=== PATIENT | female | born 1955 | race Caucasian/White ===

== ENCOUNTER → 2018-09-20 13:18 | Outpatient (CLI) | payer OTHER, SELFPAY ==
--- NOTE | 2018-09-20 13:27 | NVE_ITS ---
Venous Exam Indications: 729.5 Pain in limb. IMPRESSIONS 1. No evidence of deep or superficial vein thrombosis involving the right lower extremity 2. 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 Complete lower extremity venous duplex evaluation. Doppler flow study including spectral analysis, color and shea scale imaging. Location: Vascular laboratory. Patient status: Outpatient. Tables: Venous flow and imaging: + +-------+ + Location Overall Flow properties + +-------+ + Right common femoral Patent Normal phasicity; spontaneous; normal augmentation; compressible + +-------+ + Right saphenofemoral junction Patent Compressible + +-------+ + Right profunda femoral Patent Compressible + +-------+ + Right femoral Patent Normal phasicity; spontaneous; normal augmentation; compressible + +-------+ + Right greater saphenous Patent Normal phasicity; spontaneous; normal augmentation; compressible + +-------+ + Right popliteal Patent Normal phasicity; spontaneous; normal augmentation; compressible + +-------+ + Right posterior tibial Patent Compressible + +-------+ + Right peroneal Patent Compressible + +-------+ + Right gastrocnemius Patent Compressible + +-------+ + Right soleal Patent Compressible + +-------+ + (Report amended ) Electronically signed by: Dylan Hernández [id number]
== END ==
PROVIDERS: PCP Family Medicine; Visit Provider Family Medicine
DX: M79.661 Pain in right lower leg (principal)
CPT/HCPCS: 93971

== ENCOUNTER → 2021-03-11 15:44 | Outpatient (CLI) | payer OTHER, SELFPAY | PROVIDERS: PCP Nurse Practitioner; Visit Provider Nurse Practitioner | DX: Z20.822 Contact with and (suspected) exposure to COVID-19 (principal); U07.1 COVID-19 | CPT/HCPCS: C9803; U0003; U0005 ==

== ENCOUNTER → 2021-06-24 14:38 | Outpatient (CLI) | payer OTHER, SELFPAY | PROVIDERS: PCP Family Medicine; Visit Provider Nurse Practitioner | DX: U07.1 COVID-19 (principal) | CPT/HCPCS: C9803; U0003; U0005 ==

== ENCOUNTER → 2022-05-18 09:25 | Outpatient (CLI) | payer OTHER, SELFPAY ==
[2022-05-18 20:32] LABS: Alanine Aminotransferase 27 U/L (12-78); Albumin Level 4.2 g/dl (3.5-5.0); Albumin/Globulin Ratio 1.8 (1.1-1.8); Alkaline Phosphatase 92 U/L (38-126); Anion Gap 14.3 mEq/L (5-15); Aspartate Amino Transferase 35 U/L (14-36); Bilirubin,Total 0.5 mg/dl (0.2-1.3); Blood Urea Nitrogen 13 mg/dl (7-17); Calcium 9.6 mg/dl (8.4-10.2); Carbon Dioxide 24 mmol/L (22.0-30.0); Chloride 104 mmol/L (98-107); Chol/HDL Ratio 2.9 (1-3.5); Cholesterol 141 mg/dl (140-200); Estimated Glomerular Filt Rate 72 ml/min (>60); GFR (African American) 87 ML/MIN (>60); Globulin 2.3 g/dL (1.3-3.2); Glucose 144 mg/dl (74-100); HDL Cholesterol 48 mg/dl (40-60); Potassium 4.3 mmoL/L (3.5-5.1); Sodium 138 mmol/L (136-145); Total Protein,Serum 6.5 g/dl (6.3-8.2); Triglycerides 158 mg/dl (30-150); VLDL Cholesterol 32 mg/dL (0-40)
[2022-05-18 20:43] LABS: Direct LDL Cholesterol 65.45 mg/dL (100-129)
[2022-05-18 21:22] LABS: Vitamin B12 511 pg/mL (239-931)
== END ==
PROVIDERS: PCP Nurse Practitioner; Visit Provider Nurse Practitioner
DX: I10 Essential (primary) hypertension (principal); E11.9 Type 2 diabetes mellitus without complications; E78.5 Hyperlipidemia, unspecified; J30.9 Allergic rhinitis, unspecified; Z79.84 Long term (current) use of oral hypoglycemic drugs
CPT/HCPCS: 80053; 80061; 82607; 84443

== ENCOUNTER → 2022-06-24 14:21 | Outpatient (CLI) | payer OTHER, SELFPAY ==
--- NOTE | 2022-06-24 14:35 | US_ITS ---
FINAL REPORT TECHNIQUE: Sonographic images of the thyroid gland were obtained in the longitudinal and transverse planes. CLINICAL HISTORY: thyroid nodularity FINDINGS: The right lobe measures 1.1 x 3.4 x 1.3 cm. There is a tiny colloid cyst. The right lobe is otherwise homogeneous. The left lobe measures 1.3 x 3.7 x 1.2 cm. The left lobe is homogeneous. There are no cystic or solid nodules. The isthmus measures 3 mm. This is normal. IMPRESSION: Tiny colloid cyst on the right, otherwise unremarkable. Reviewed, Interpreted and Dictated by Nicky Parish MD Transcribed by Elaine Stahl Authenticated and [facility]
== END ==
PROVIDERS: PCP Nurse Practitioner; Visit Provider Nurse Practitioner
DX: D44.0 Neoplasm of uncertain behavior of thyroid gland (principal)
CPT/HCPCS: 76536

== ENCOUNTER → 2022-12-02 09:21 | Outpatient (CLI) | payer MEDICARE, SELFPAY ==
[2022-12-02 18:37] LABS: Creatinine,Urine Random 83 mg/dL (Not Estab.)
[2022-12-02 18:38] LABS: Basophils % 0.2 % (0.1-2.0); Eosinophils # 0.1 K/mm3 (0.0-0.4); Eosinophils % 2.7 % (0.1-12.0); Hematocrit 45.1 % (37.0-47.0); Lymphocytes # 1.6 K/mm3 (0.7-4.5); Lymphocytes % 36.4 % (10-50); Mean Corpuscular Hemoglobin 31.5 pg (27.0-31.2); Mean Corpuscular Volume 101.7 fl (81-99); Mean Platelet Volume 10.1 fl (7.4-10.4); Monocytes # 0.4 K/mm3 (0.1-1.0); Monocytes % 8.8 % (1.7-9.3); Neutrophils # 2.2 K/mm3 (1.8-7.8); Neutrophils % 51.9 % (37.0-80.0); Platelet Count 204 K/mm3 (142-424); Red Blood Count 4.43 M/mm3 (4.20-5.40); Red Cell Distribution Width 12.6 % (11.5-17.5); White Blood Count 4.3 K/mm3 (4.8-10.8)
[2022-12-02 18:41] LABS: Microalbumin/Creatinine Ratio 8.5
[2022-12-02 18:43] LABS: Alanine Aminotransferase 30 U/L (12-78); Albumin Level 4.2 g/dl (3.5-5.0); Albumin/Globulin Ratio 1.8 (1.1-1.8); Alkaline Phosphatase 66 U/L (38-126); Anion Gap 17.2 mEq/L (5-15); Aspartate Amino Transferase 40 U/L (14-36); Bilirubin,Total 0.3 mg/dl (0.2-1.3); Blood Urea Nitrogen 10 mg/dl (7-17); Calcium 8.9 mg/dl (8.4-10.2); Carbon Dioxide 26 mmol/L (22.0-30.0); Chloride 102 mmol/L (98-107); Chol/HDL Ratio 2.5 (1-3.5); Cholesterol 133 mg/dl (140-200); Estimated Glomerular Filt Rate 84 ml/min (>60); GFR (African American) 102 ML/MIN (>60); Globulin 2.4 g/dL (1.3-3.2); Glucose 142 mg/dl (74-100); HDL Cholesterol 53 mg/dl (40-60); Potassium 4.2 mmoL/L (3.5-5.1); Sodium 141 mmol/L (136-145); Total Protein,Serum 6.6 g/dl (6.3-8.2); Triglycerides 196 mg/dl (30-150); VLDL Cholesterol 39 mg/dL (0-40)
[2022-12-02 18:57] LABS: Direct LDL Cholesterol 56.77 mg/dL (100-129)
== END ==
PROVIDERS: PCP Nurse Practitioner; Visit Provider Nurse Practitioner
DX: E11.9 Type 2 diabetes mellitus without complications (principal); E78.5 Hyperlipidemia, unspecified; I10 Essential (primary) hypertension; J30.9 Allergic rhinitis, unspecified; Z79.84 Long term (current) use of oral hypoglycemic drugs
CPT/HCPCS: 80053; 80061; 82043; 82570; 85025

== ENCOUNTER 2023-06-24 19:34 | Outpatient (CLI) | payer MEDICARE, SELFPAY ==
[2023-06-24 19:15] LABS: Alanine Aminotransferase 24 U/L (12-78); Albumin Level 3.9 g/dl (3.5-5.0); Albumin/Globulin Ratio 1.7 (1.1-1.8); Alkaline Phosphatase 68 U/L (38-126); Anion Gap 11.5 mEq/L (5-15); Aspartate Amino Transferase 30 U/L (14-36); Bilirubin,Total 0.4 mg/dl (0.2-1.3); Blood Urea Nitrogen 14 mg/dl (7-17); Calcium 8.9 mg/dl (8.4-10.2); Carbon Dioxide 26 mmol/L (22.0-30.0); Chloride 102 mmol/L (98-107); Chol/HDL Ratio 3.8 (1-3.5); Cholesterol 163 mg/dl (140-200); Estimated Glomerular Filt Rate 72 ml/min (>60); GFR (African American) 87 ML/MIN (>60); Globulin 2.3 g/dL (1.3-3.2); Glucose 136 mg/dl (74-100); HDL Cholesterol 43 mg/dl (40-60); Potassium 4.5 mmoL/L (3.5-5.1); Sodium 135 mmol/L (136-145); Total Protein,Serum 6.2 g/dl (6.3-8.2); Triglycerides 154 mg/dl (30-150); VLDL Cholesterol 31 mg/dL (0-40)
[2023-06-24 19:26] LABS: Direct LDL Cholesterol 93.18 mg/dL (100-129)
[2023-06-24 19:56] LABS: Creatinine,Urine Random 58 mg/dL (Not Estab.)
[2023-06-24 20:07] LABS: Microalbumin < 6.000 mg/L (0-16.7)
[2023-06-24 20:20] LABS: Thyroid Stimulating Hormone 0.72 uIU/mL (0.465-4.68)
[2023-06-24 20:40] LABS: Vitamin B12 616 pg/mL (239-931)
== END 2023-06-24 23:59 ==
LOC: LAB.DROPOF 19:34
PROVIDERS: PCP Nurse Practitioner; Visit Provider Nurse Practitioner
DX: E11.9 Type 2 diabetes mellitus without complications (principal); E78.5 Hyperlipidemia, unspecified; I10 Essential (primary) hypertension; J30.9 Allergic rhinitis, unspecified; Z79.84 Long term (current) use of oral hypoglycemic drugs
CPT/HCPCS: 80053; 80061; 82043; 82570; 82607; 84443

== ENCOUNTER 2023-08-19 16:39 | Emergency (ER) | payer MEDICARE, SELFPAY ==
[2023-08-19 16:40] VITALS: BP 132/73; PULSE 110; RESP 18; TEMP 36.7; O2SAT 99; BMI 30.6
--- NOTE | 2023-08-19 17:09 | XR_ITS ---
PROCEDURE INFORMATION: Exam: XR Right Humerus Exam date and time: 08/19/2023 5:25 PM Age: 67 years old Clinical indication: Injury or trauma; Fall; Blunt trauma (contusions or hematomas); Arm, upper; Right; Additional info: Fall, injury TECHNIQUE: Imaging protocol: Radiologic exam of the right humerus. Views: 2 or more views. COMPARISON: No relevant prior studies available. FINDINGS: Bones/joints: Minimally displaced fracture of the proximal radial metaphysis with avulsion of the greater tuberosity of the humerus which measures 4.1 cm in greatest dimension. Soft tissues: Moderate soft tissue swelling. IMPRESSION: Minimally displaced fracture of the proximal radial metaphysis with avulsion of the greater tuberosity of the humerus which measures 4.1 cm in greatest dimension.
--- NOTE | 2023-08-19 17:10 | ED_ITS ---
Discharge Plan Disposition Patient Disposition: Home, Self-Care Prescriptions Prescriptions: New hydrocodone-acetaminophen 5-325 mg tablet 1 tab PO Q6H PRN (Reason: pain) 3 Days Qty: 12 0RF No Action aspirin 81 mg tablet,chewable 81 mg PO DAILY cyanocobalamin (vitamin B-12) 1,000 mcg tablet 1,000 mcg PO DAILY multivitamin Tablet 1 tab PO DAILY cefdinir 300 mg capsule 300 mg PO BID Qty: 20 0RF glimepiride 2 mg tablet 2 mg PO DAILY Qty: 90 1RF hydrochlorothiazide 12.5 mg tablet 12.5 mg PO DAILY Qty: 90 1RF lisinopril 5 mg tablet 5 mg PO DAILY Qty: 90 1RF metformin 1,000 mg tablet 1,000 mg PO BID Qty: 180 1RF simvastatin 40 mg tablet 40 mg PO HS Qty: 90 1RF Referrals Follow up/Referrals: Lynne Jameson APRN [Primary Care Provider] - See instructions Nicanor Giron DO [Staff Physician] - See instructions Activity Restrictions/Add. Instructions Additional Instructions/Restrictions: You have a proximal right humerus fracture in the neck and head of the humerus. Please wear your sling and follow-up closely with Dr. Giron for further evaluation and management. Clinical Impressions Clinical Impression: Closed fracture of neck of right humerus, Fracture of head of right humerus Discharge ED Provider: Joanna Vigil General Adult HPI General Chief complaint: Extremity Injury, Upper Stated complaint: [id number]/14@[id number] RT arm inj Time Seen by Provider: 08/19/23 17:07 History of Present Illness HPI narrative: Patient is a 67-year-old female presents today with right proximal humerus pain after walking a dog that pulled her arm and she fell with a direct blow to that area. She claims that she has pain in this area and nowhere else. Has no motor or sensory dysfunction. States when her arm is internally rotated and adducted that she is not having significant pain only when she moves. Related Data Home Medications Medication Instructions Recorded Confirmed aspirin 81 mg chewable tablet 81 mg PO DAILY 05/18/22 06/24/23 cyanocobalamin (vitamin B-12) 1,000 mcg PO DAILY 05/18/22 06/24/23 1,000 mcg tablet multivitamin 1 tab PO DAILY 12/12/22 01/18/24 Previous Rx's Medication Instructions Recorded cefdinir 300 mg capsule 300 mg PO BID #20 caps 06/24/23 glimepiride 2 mg tablet 2 mg PO DAILY #90 tabs 06/24/23 hydrochlorothiazide 12.5 mg tablet 12.5 mg PO DAILY #90 tabs 06/24/23 lisinopril 5 mg tablet 5 mg PO DAILY #90 tabs 06/24/23 metformin 1,000 mg tablet 1,000 mg PO BID #180 tabs 06/24/23 simvastatin 40 mg tablet 40 mg PO HS #90 tabs 06/24/23 hydrocodone 5 mg-acetaminophen 325 1 tab PO Q6H PRN pain 3 days #12 08/19/23 mg tablet tabs Allergies Allergy/AdvReac Type Severity Reaction Status Date / Time No Known Allergies Allergy Verified 06/24/23 08:48 [facility] Disclaimer: The information contained in this section may have been updated after the patient was seen, as this information can be updated by other users. 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 Type 2 diabetes mellitus without complications Surgical History History of delivery Social History Smoking Status: Never smoker alcohol intake: never substance use type: denies use current occupational status: other Travel in the last 8 weeks: None ROS Obtained: Yes All systems reviewed & no additional complaints except as documented Physical Exam General General appearance: alert and in no apparent distress Respiratory Respiratory exam: Present normal lung sounds bilaterally Cardiovascular Cardiovascular exam: Present regular rate and normal rhythm Extremities Exam Extremities exam: Present other (Patient has tenderness in the proximal humerus on the right arm normal median axillary ulnar radial motor and sensory function normal nerve exam as well as vascular exam) Neurological Exam Neurological exam: Present alert and oriented X3 Medical Decision Making Christian Inquiry Pt receiving controlled substance: No Vital Signs: 08/19/23 16:40 Temperature 98.1 F Temperature Source Oral Pulse Rate [Left] 110 H Respiratory Rate 18 Blood Pressure [Right Arm] 132/73 Blood Pressure Mean [Right Arm] 92 Blood Pressure Source [Right Arm] Automatic Cuff 02 Sat by Pulse Oximetry 99 Oxygen Delivery Method Room Air Orders (Tests/Meds): ED MEDICATIONS Discontinued Medications Generic Name Dose Route Start Last Admin Trade Name Dexter PRN Reason Stop Dose Admin Acetaminophen 1,000 mg 08/19/23 17:09 Acetaminophen 500mg Tab PO 08/19/23 17:10 ONCE ONE ORDERS Category Date Time Status Humerus XR right [XR humerus RT] Stat Exams 08/19/23 17:09 Taken Medical Decision Narrative: 67-year-old female with proximal humeral pain after a fall and pulling injury. Differential includes musculoskeletal strain fracture dislocation etc. Will get a humerus x-ray and reassess. Tylenol has been administered as well. X-ray performed which showed humeral neck and humeral head fracture definitive fracture care was provided given a sling and swath. Patient will follow-up outpatient with orthopedic surgery prescription of Arnold was sent to her pharmacy she was discharged in stable condition. Critical Care Critical Care Time Critical Care Time: No
[2023-08-19] MEDS: ACETAMINOPHEN 500MG TAB 1000 MG PO (17:43)
[2023-08-19 17:55] VITALS: BP 134/70; PULSE 90; RESP 16; TEMP 36.7; O2SAT 98
--- NOTE | 2023-08-23 22:45 | PC.NURSE ---
Chart accessed for ortho paperwork
== END 2023-08-19 18:01 | disposition home or self-care (01) ==
PROVIDERS: Emergency Provider Student in an Organized Health Care Education/Training Program; PCP Nurse Practitioner
DX: S42.254A Nondisplaced fracture of greater tuberosity of right humerus, initial encounter for closed fracture (principal); S42.211A Unspecified displaced fracture of surgical neck of right humerus, initial encounter for closed fracture; W18.30XA Fall on same level, unspecified, initial encounter; Y93.K1 Activity, walking an animal; I10 Essential (primary) hypertension; E78.5 Hyperlipidemia, unspecified; E11.9 Type 2 diabetes mellitus without complications
CPT/HCPCS: 73060; 99283

== ENCOUNTER 2023-08-25 13:40 | Outpatient (CLI) | payer MEDICARE, SELFPAY ==
--- NOTE | 2023-08-25 13:51 | CT_ITS ---
FINAL REPORT TECHNIQUE: Axial imaging of the right shoulder was obtained without contrast. Reformatted images were also obtained and reviewed. Low-dose technique was utilized. CLINICAL HISTORY: Rt Humerus Fx FINDINGS: There is a comminuted fracture of the humeral head and surgical neck with mild impaction of the fracture fragments. A small calcification is seen posterior and inferior to the glenohumeral joint which may represent a bony fragment. There is a moderate-sized joint effusion. Mild degenerative changes are seen of the acromioclavicular joint. IMPRESSION: Comminuted fracture of the humeral head and surgical neck with mild impaction of the fracture fragments. Small calcification at the posterior inferior aspect of the glenohumeral joint likely represents a bony fragment. Reviewed, Interpreted and Dictated by Carlos Centeno III, MD Transcribed by Hayley Arauz Authenticated and [facility]
== END 2023-08-25 23:59 ==
PROVIDERS: PCP Nurse Practitioner; Visit Provider Orthopaedic Surgery
DX: S42.211A Unspecified displaced fracture of surgical neck of right humerus, initial encounter for closed fracture (principal)
CPT/HCPCS: 73200

== ENCOUNTER 2023-08-31 15:32 | Outpatient (POV) | payer MEDICARE, SELFPAY | END 2023-08-31 23:59 | disposition home or self-care (01) | LOC: SC 15:32 | PROVIDERS: PCP Nurse Practitioner; Visit Provider Dermatology | DX: Z00.00 Encounter for general adult medical examination without abnormal findings (principal) ==

== ENCOUNTER 2023-10-12 10:20 | Outpatient (CLI) | payer MEDICARE, SELFPAY ==
--- NOTE | 2023-10-12 10:23 | XR_ITS ---
FINAL REPORT CLINICAL HISTORY: right shoulder fx COMPARISON: CT right shoulder dated 08/25/2023 FINDINGS: RIGHT SHOULDER: 2 views of the right shoulder were obtained. There is a comminuted fracture of the humeral head and neck, with an appearance similar to that of the CT from August. There has been some mild healing at the fracture sites. The joint spaces are intact. There is no soft tissue abnormality. IMPRESSION: Comminuted fracture of the humeral head and neck, with send appearance is similar to that seen on the prior CT examination of August 2023. Some mild interval healing has taken place. Reviewed, Interpreted and Dictated by Carlos Centeno III, MD Transcribed by Daisy Aranda Authenticated and [facility]
== END 2023-10-12 23:59 | disposition home or self-care (01) ==
LOC: RAD 10:21
PROVIDERS: PCP Nurse Practitioner; Visit Provider Orthopaedic Surgery
DX: M79.601 Pain in right arm (principal); S42.251A Displaced fracture of greater tuberosity of right humerus, initial encounter for closed fracture
CPT/HCPCS: 73030

== ENCOUNTER 2023-10-26 16:08 | Outpatient (POV) | payer MEDICARE, SELFPAY | END 2023-10-26 23:59 | disposition home or self-care (01) | LOC: SC 16:08 | PROVIDERS: PCP Nurse Practitioner; Visit Provider Dermatology | DX: Z00.00 Encounter for general adult medical examination without abnormal findings (principal) ==

== ENCOUNTER 2023-11-09 12:58 | Outpatient (CLI) | payer MEDICARE, SELFPAY ==
--- NOTE | 2023-11-09 13:04 | XR_ITS ---
FINAL REPORT CLINICAL HISTORY: Rt SHoulder pain FINDINGS: Right shoulder Five views were obtained. There is mild AC joint degenerative change. There is a mild impaction fracture of the surgical neck of the humerus of uncertain age, may be subacute. IMPRESSION: Fracture as above. Reviewed, Interpreted and Dictated by Carlos Centeno III, MD Transcribed by Elaine Stahl Authenticated and [facility]
== END 2023-11-09 23:59 | disposition home or self-care (01) ==
LOC: RAD 12:59
PROVIDERS: PCP Nurse Practitioner; Visit Provider Physician Assistant
DX: M25.511 Pain in right shoulder; S42.291A Other displaced fracture of upper end of right humerus, initial encounter for closed fracture
CPT/HCPCS: 73030

== ENCOUNTER 2024-02-29 11:02 | Outpatient (CLI) | payer MEDICARE, SELFPAY ==
[2024-02-29 18:34] LABS: Basophils % 0.4 % (0.1-2.0); Eosinophils # 0.1 K/mm3 (0.0-0.4); Eosinophils % 2.5 % (0.1-12.0); Hematocrit 42.3 % (37.0-47.0); Hemoglobin 13.7 g/dL (12.2-16.2); Lymphocytes # 1.3 K/mm3 (0.7-4.5); Lymphocytes % 30.8 % (10-50); Mean Corpuscular HGB Conc 32.3 g/dL (31.8-35.4); Mean Corpuscular Hemoglobin 32.8 pg (27.0-31.2); Mean Corpuscular Volume 101.3 fl (81-99); Mean Platelet Volume 8.8 fl (7.4-10.4); Monocytes # 0.3 K/mm3 (0.1-1.0); Monocytes % 6.8 % (1.7-9.3); Neutrophils # 2.6 K/mm3 (1.8-7.8); Neutrophils % 59.4 % (37.0-80.0); Platelet Count 216 K/mm3 (142-424); Red Blood Count 4.18 M/mm3 (4.20-5.40); Red Cell Distribution Width 12.8 % (11.5-17.5); White Blood Count 4.3 K/mm3 (4.8-10.8)
[2024-02-29 19:02] LABS: Alanine Aminotransferase 24 U/L (12-78); Albumin Level 4.1 g/dl (3.5-5.0); Albumin/Globulin Ratio 1.8 (1.1-1.8); Alkaline Phosphatase 65 U/L (38-126); Aspartate Amino Transferase 31 U/L (14-36); Bilirubin,Total 0.5 mg/dl (0.2-1.3); Blood Urea Nitrogen 17 mg/dl (7-17); Calcium 9.1 mg/dl (8.4-10.2); Carbon Dioxide 27 mmol/L (22.0-30.0); Chloride 104 mmol/L (98-107); Chol/HDL Ratio 2.9 (1-3.5); Cholesterol 150 mg/dl (140-200); Estimated Glomerular Filt Rate 72 ml/min (>60); GFR (African American) 87 ML/MIN (>60); Globulin 2.3 g/dL (1.3-3.2); Glucose 137 mg/dl (74-100); HDL Cholesterol 51 mg/dl (40-60); Sodium 135 mmol/L (136-145); Total Protein,Serum 6.4 g/dl (6.3-8.2); Triglycerides 178 mg/dl (30-150); VLDL Cholesterol 36 mg/dL (0-40)
[2024-02-29 19:14] LABS: Hemoglobin A1C 6.7 % (4.0-6.0)
[2024-02-29 20:22] LABS: Direct LDL Cholesterol 66.64 mg/dL (100-129)
== END 2024-02-29 23:59 | disposition home or self-care (01) ==
LOC: LAB.DROPOF 03-01 11:02
PROVIDERS: PCP Nurse Practitioner; Visit Provider Nurse Practitioner
DX: E11.9 Type 2 diabetes mellitus without complications (principal); I10 Essential (primary) hypertension; E78.5 Hyperlipidemia, unspecified
CPT/HCPCS: 80053; 80061; 83036; 85025

== ENCOUNTER 2024-11-01 11:00 | Outpatient (CLI) | payer MEDICARE, SELFPAY ==
[2024-11-01 19:10] LABS: Creatinine,Urine Random 75 mg/dL (Not Estab.); Microalbumin < 6.000 mg/L (0-16.7)
[2024-11-01 19:17] LABS: Basophils % 0.5 % (0.1-2.0); Eosinophils # 0.1 Kmm3 (0.0-0.4); Eosinophils % 1.9 % (0.1-12.0); Hematocrit 39.7 % (37.0-47.0); Hemoglobin 13.5 g/dL (12.2-16.2); Immature Granulocytes # 0.01 10^3uL; Immature Granulocytes % 0.2 %; Lymphocytes # 1.5 K/mm3 (0.7-4.5); Lymphocytes % 34.7 % (10-50); Mean Corpuscular Hemoglobin 32.3 pg (27.0-31.2); Mean Platelet Volume 10.5 fl (7.4-10.4); Monocytes # 0.5 K/mm3 (0.1-1.0); Monocytes % 11.2 % (1.7-9.3); Neutrophils # 2.2 K/mm3 (1.8-7.8); Neutrophils % 51.5 % (37.0-80.0); Nucleated Red Blood Cells # 0 10^3/uL; Nucleated Red Blood Cells % 0 %; Platelet Count 204 K/mm3 (142-424); Red Blood Count 4.18 M/mm3 (4.20-5.40); Red Cell Distribution Width-SD 41.7 fL; White Blood Count 4.2 K/mm3 (4.8-10.8)
[2024-11-01 19:42] LABS: Alanine Aminotransferase 23 U/L (12-78); Albumin Level 4.2 g/dl (3.5-5.0); Albumin/Globulin Ratio 1.8 (1.1-1.8); Alkaline Phosphatase 64 U/L (38-126); Aspartate Amino Transferase 28 U/L (14-36); Bilirubin,Total 0.5 mg/dl (0.2-1.3); Blood Urea Nitrogen 12 mg/dl (7-17); Calcium 9.2 mg/dl (8.4-10.2); Carbon Dioxide 27 mmol/L (22.0-30.0); Chol/HDL Ratio 3.8 (1-3.5); Cholesterol 180 mg/dl (140-200); Estimated Glomerular Filt Rate 83 ml/min (>60); GFR (African American) 101 ML/MIN (>60); Globulin 2.3 g/dL (1.3-3.2); Glucose 120 mg/dl (74-100); HDL Cholesterol 47 mg/dl (40-60); Potassium 4.6 mmoL/L (3.5-5.1); Sodium 138 mmol/L (136-145); Total Protein,Serum 6.5 g/dl (6.3-8.2); Triglycerides 255 mg/dl (30-150); VLDL Cholesterol 51 mg/dL (0-40)
[2024-11-01 19:59] LABS: Anion Gap 12.6 mEq/L (5-15); Chloride 103 mmol/L (98-107)
[2024-11-01 20:11] LABS: Hemoglobin A1C 6.8 % (4.0-6.0); Thyroid Stimulating Hormone 0.73 uIU/mL (0.465-4.68)
[2024-11-01 20:22] LABS: HIV Combo NEGATIVE (Negative)
[2024-11-01 21:36] LABS: Hepatitis C Ab Qual. W/ RFX NEGATIVE (Negative)
[2024-11-01 21:53] LABS: Vitamin B12 725 pg/mL (239-931)
== END 2024-11-01 23:59 | disposition home or self-care (01) ==
LOC: LAB.DROPOF 11-02 13:01
PROVIDERS: PCP Nurse Practitioner; Visit Provider Nurse Practitioner
DX: E78.5 Hyperlipidemia, unspecified (principal); E11.9 Type 2 diabetes mellitus without complications; I10 Essential (primary) hypertension; Z11.59 Encounter for screening for other viral diseases; Z11.4 Encounter for screening for human immunodeficiency virus [HIV]
CPT/HCPCS: 80053; 80061; 82043; 82570; 82607; 83036; 84443; 85025; 86803; 87389